=== PATIENT | male | born 1990 | race Caucasian/White ===

== ENCOUNTER 2016-06-14 10:00 | Emergency (ER) | payer SELFPAY ==
[2016-06-14 10:46] VITALS: BP 127/88
--- NOTE | 2016-06-14 12:18 | Emergency Department Report ---
ED General Adult HPI - General Chief complaint: Urogenital-Male Stated complaint: POSS STD Time Seen by Provider: 06/14/16 11:56 Source: patient Mode of arrival: Ambulatory Limitations: No Limitations - History of Present Illness Initial comments: PT c/o burning sensation to penis and yellow discharge. PT states symptoms started yesterday. PT reports only one sexual partner and states it was a "one night stand" pt does not report condom use. PT states he has has this before and he had an STD. MD Complaint: penile discharge Onset/Timin -: Gradual, days(s) Location: genitals Radiation: non-radiation Worsens with: other (urination ) Associated Symptoms: denies: chest pain, fever/chills, nausea/vomiting, rash - Related Data Home Medications Medication Instructions Recorded Confirmed Last Taken No Known Home Medications [No 06/14/16 06/14/16 Unknown Reported Home Medications] Allergies Allergy/AdvReac Type Severity Reaction Status Date / Time No Known Allergies Allergy Unverified 06/14/16 10:43 ED Review of Systems ROS: Stated complaint: POSS STD Other details as noted in HPI Comment: All other systems reviewed and negative Constitutional: denies: chills, fever Cardiovascular: denies: chest pain Gastrointestinal: denies: nausea, vomiting Genitourinary: dysuria, discharge. denies: testicular pain, testicular mass Musculoskeletal: denies: back pain Skin: denies: rash, change in color ED Past Medical Hx - Past Medical History Previous Medical History?: No - Surgical History Past Surgical History?: No - Social History Smoking Status: Never Smoker Substance Use Type: Alcohol - Medications Home Medications: Home Medications Medication Instructions Recorded Confirmed Last Taken Type No Known Home Medications [No 06/14/16 06/14/16 Unknown History Reported Home Medications] ED Physical Exam - General Limitations: No Limitations General appearance: alert, in no apparent distress - Head Head exam: Present: atraumatic, normocephalic, normal inspection - Eye Eye exam: Present: normal appearance, EOMI. Absent: conjunctival injection - ENT ENT exam: Present: normal exam, normal orophraynx, mucous membranes moist, normal external ear exam - Neck Neck exam: Present: normal inspection, full ROM. Absent: lymphadenopathy - Respiratory Respiratory exam: Present: normal lung sounds bilaterally. Absent: respiratory distress - Cardiovascular Cardiovascular Exam: Present: regular rate, normal rhythm - GI/Abdominal GI/Abdominal exam: Present: soft. Absent: tenderness - Extremities Exam Extremities exam: Present: normal inspection, full ROM - Back Exam Back exam: Present: normal inspection, full ROM. Absent: tenderness, CVA tenderness (R), CVA tenderness (L) - Neurological Exam Neurological exam: Present: alert, oriented X3, normal gait - Psychiatric Psychiatric exam: Present: normal affect, normal mood - Skin Skin exam: Present: warm, dry, intact ED Course Vital Signs 06/14/16 10:45 Temperature 98.5 F Pulse Rate 87 Respiratory 17 Rate Blood Pressure 127/88 O2 Sat by Pulse 100 Oximetry - Reevaluation(s) Reevaluation #1: 06/14/16 12:18 PT aware we will treat empirically for GC/ CT. PT aware he will need to follow up for full panel STD testing. - Pulse Oximetry Interpretation Digit-Finger Initial Pulse Oximetry Readin Actions Taken: none ED Medical Decision Making - Differential Diagnosis std Critical care attestation.: If time is entered above; I have spent that time in minutes in the direct care of this critically ill patient, excluding procedure time. ED Disposition Clinical Impression: Risky sexual behavior, Penile discharge Disposition: DISCHARGED TO HOME OR SELFCARE Is pt being admited?: No Does the pt Need Aspirin: No Condition: Stable Instructions: Sexually Transmitted Diseases (ED), Condom Use (ED) Additional Instructions: Follow up for full panel STD testing No sex x the next 7 days Cultures take 3-5 days to result, if they are positive, someone from the hospital should call you Inform your sexual partner that they may need STD testing/ treatment Referrals: PRIMARY CARE, [Primary Care Provider] - 3-5 Days Time of Disposition: 12:20
[2016-06-14] MEDS: XYLOCAINE 1% MPF 5 mL INFILTRATI ONE (12:26)
[2016-06-14] MEDS: ROCEPHIN IM ONE (12:26)
[2016-06-14] MEDS: ZITHROMAX PO ONE (12:26)
== END 2016-06-14 12:50 | disposition home or self-care (01) ==
LOC: ED 10:00
DX: R36.9 Urethral discharge, unspecified (principal)
CPT/HCPCS: 96372; 99282; J0696